=== PATIENT | male | born 1995 | race Caucasian/White ===

== ENCOUNTER 2020-06-09 05:34 | Inpatient (IN) ==
[2020-06-09 07:55] LABS: ABG Base Excess -4 mEq/L (-2 to 3); ABG HCO3 25 mEq/L (21-27); ABG Oxygen Saturation 84 % (95-98); ABG PCO2 63 mmHg (35-45); ABG PH 7.21 pH Units (7.32-7.45); ABG PO2 61 mmHg (85-104); ABG TCO2 27 mEq/L (20-26); Blood Gas VT 500 cc
[2020-06-09] MEDS ORDERED: Ondansetron 4 MG/2 ML VIAL IVP PRN (08:00)
[2020-06-09] MEDS ORDERED: Naloxone 0.4 MG/ML INJ IVP PRN ×2 (08:00→16:55)
[2020-06-09] MEDS ORDERED: Piperacillin/Tazobactam 3.375 GM in 0.9 % Sodium Chloride Mini Bag 100 ML IVPB SCH (09:00)
[2020-06-09] MEDS ORDERED: Artificial Tears SOLN 15 ML BOTTLE BOTH EYES PRN (09:13)
[2020-06-09] MEDS ORDERED: Isovue-370 500 ML BOTTLE IVP ONE (09:41)
[2020-06-09 09:51] LABS: Basophils % 0.2 %; Eosinophils % 0.1 %; Hematocrit 45.5 % (37.5-50.1); Hemoglobin 14.7 g/dL (12.9-16.9); Immature Granulocytes % 0.6 % (0-4); Lymphocytes # 2.5 K/mcL (0.6-4.6); Lymphocytes % 15.1 %; Mean Corpuscular HGB Conc 32.3 g/dL (31.6-35.5); Mean Corpuscular Hemoglobin 29.9 pg (28.0-33.3); Mean Corpuscular Volume 92.7 fL (83.0-100.0); Mean Platelet Volume 9.8 fL (9.4-12.4); Monocytes # 1.5 K/mcL (0.0-1.3); Neutrophils # 12.2 K/mcL (1.6-8.9); Platelet Count 243 K/mcL (140-400); Red Blood Count 4.91 M/mcL (4.19-5.50); Red Cell Distribution Width 12.4 % (11.5-14.5); White Blood Count 16.3 K/mcL (4.3-11.1)
[2020-06-09] MEDS: Pantoprazole 40 MG VIAL IVP SCH (10:01)
[2020-06-09 10:06] LABS: Alanine Aminotransferase 33 Units/L (7-52); Albumin 4.5 g/dL (3.5-5.7); Albumin/Globulin Ratio 1.6 (1.1-2.2); Alkaline Phosphatase 72 Units/L (34-104); Aspartate Amino Transferase 57 Units/L (13-39); BUN/Creatinine Ratio 10 (6-26); Bilirubin,Total 0.5 mg/dL (0.3-1.0); Blood Urea Nitrogen 15 mg/dL (6-20); Calcium 8.4 mg/dL (8.6-10.3); Carbon Dioxide 27 mEq/L (23-29); Chloride 107 mEq/L (98-107); Globulin 2.8 g/dL (2.4-3.5); Glucose 92 mg/dL (70-105); Magnesium 1.8 mg/dL (1.6-2.6); Osmolality,Calculated 284 (280-300); Phosphorous 4.5 mg/dL (2.7-4.5); Potassium 5.9 mEq/L (3.5-5.1); Sodium 137 mEq/L (136-145); Total Protein 7.3 g/dL (6.4-8.9); eGFR For African Americans > 60 (> 60); eGFR For Non-African Americans 55 (> 60)
[2020-06-09 10:29] LABS: Sodium, Urine 41.1 mEq/L
[2020-06-09 10:31] LABS: Creatine Kinase 1841 Units/L (30-223)
[2020-06-09] MEDS: Calcium Gluconate 1gm/50mL 1 GM/50 ML BAG IVPB SCH ×2 (11:00→12:21)
[2020-06-09] MEDS ORDERED: Ringers Solution, Lactated 1,000 ML ONE (11:11)
[2020-06-09] MEDS: Artificial Tears SOLN 15 ML BOTTLE BOTH EYES SCH ×4 (11:13→23:32)
[2020-06-09 11:25] LABS: ABG Base Excess -4 mEq/L (-2 to 3); ABG HCO3 24 mEq/L (21-27); ABG Oxygen Saturation 47 % (95-98); ABG PCO2 53 mmHg (35-45); ABG PH 7.27 pH Units (7.32-7.45); ABG PO2 29 mmHg (85-104); ABG TCO2 26 mEq/L (20-26); Blood Gas Modality ASSIST CONTROL; Blood Gas VT 500 cc
[2020-06-09 11:37] LABS: ABG Base Excess -3 mEq/L (-2 to 3); ABG HCO3 25 mEq/L (21-27); ABG Oxygen Saturation 30 % (95-98); ABG PCO2 55 mmHg (35-45); ABG PH 7.27 pH Units (7.32-7.45); ABG PO2 22 mmHg (85-104); ABG TCO2 27 mEq/L (20-26); Blood Gas Modality ASSIST CONTROL; Blood Gas VT 500 cc
[2020-06-09 12:03] LABS: ABG Base Excess -4 mEq/L (-2 to 3); ABG HCO3 23 mEq/L (21-27); ABG Oxygen Saturation 89 % (95-98); ABG PCO2 47 mmHg (35-45); ABG PH 7.29 pH Units (7.32-7.45); ABG PO2 63 mmHg (85-104); ABG TCO2 24 mEq/L (20-26); Blood Gas Modality ASSIST CONTROL; Blood Gas VT 500 cc
[2020-06-09] MEDS: Ringers Solution, Lactated 1,000 ML IVC SCH ×2 (13:56→21:28)
[2020-06-09] MEDS ORDERED: SODIUM CHLORIDE 0.9% IVC SCH ×2 (14:45→18:45)
[2020-06-09] MEDS ORDERED: NALOXONE IVC SCH ×2 (14:45→18:45)
[2020-06-09] MEDS ORDERED: Ipratropium/Albuterol Neb 3 ML IH PRN (15:45)
[2020-06-09] MEDS ORDERED: Ipratropium/Albuterol Neb 3 ML ONE (15:45)
[2020-06-09] MEDS ORDERED: Furosemide 40 MG/4 ML VIAL IVP ONE (15:45)
[2020-06-09] MEDS ORDERED: *HR* Labetalol 20 MG/4 ML SYRINGE IVP ONE (16:58)
[2020-06-09] MEDS: Piperacillin/Tazobactam 3.375 GM in 0.9 % Sodium Chloride Mini Bag 100 ML IVPB SCH (17:58)
[2020-06-09] MEDS ORDERED: Acetaminophen 325 MG TABLET PO PRN (18:56)
[2020-06-09] MEDS ORDERED: Chlorhexidine Rinse 15 ML MOUTHWASH MM SCH (21:00)
[2020-06-09] MEDS ORDERED: Naloxone 2 MG in 0.9 % Sodium Chloride 500 ML IVC SCH (23:00)
[2020-06-10] MEDS: Piperacillin/Tazobactam 3.375 GM in 0.9 % Sodium Chloride Mini Bag 100 ML IVPB SCH ×3 (01:29→17:52)
[2020-06-10 04:09] LABS: Basophils # 0.1 K/mcL (0.0-0.2); Basophils % 0.2 %; Hematocrit 42.9 % (37.5-50.1); Hemoglobin 14.6 g/dL (12.9-16.9); Immature Granulocytes % 0.8 % (0-4); Lymphocytes # 1.3 K/mcL (0.6-4.6); Lymphocytes % 6.4 %; Mean Corpuscular Hemoglobin 30.2 pg (28.0-33.3); Mean Corpuscular Volume 88.8 fL (83.0-100.0); Mean Platelet Volume 9.8 fL (9.4-12.4); Monocytes # 0.9 K/mcL (0.0-1.3); Monocytes % 4.4 %; Platelet Count 186 K/mcL (140-400); Red Blood Count 4.83 M/mcL (4.19-5.50); Red Cell Distribution Width 12.2 % (11.5-14.5); Segmented Neutrophils % 88.2 %; White Blood Count 20.4 K/mcL (4.3-11.1)
[2020-06-10 04:10] LABS: VBG Ionized Calcium 1.11 mmol/L (1.15-1.35)
[2020-06-10] MEDS: Artificial Tears SOLN 15 ML BOTTLE BOTH EYES SCH ×3 (04:30→11:59)
[2020-06-10 04:56] LABS: Alanine Aminotransferase 59 Units/L (7-52); Albumin 4.2 g/dL (3.5-5.7); Albumin/Globulin Ratio 1.4 (1.1-2.2); Alkaline Phosphatase 57 Units/L (34-104); Aspartate Amino Transferase 156 Units/L (13-39); BUN/Creatinine Ratio 16 (6-26); Blood Urea Nitrogen 17 mg/dL (6-20); Calcium 8.8 mg/dL (8.6-10.3); Carbon Dioxide 25 mEq/L (23-29); Chloride 105 mEq/L (98-107); Creatine Kinase 4985 Units/L (30-223); Glucose 134 mg/dL (70-105); Magnesium 1.4 mg/dL (1.6-2.6); Osmolality,Calculated 290 (280-300); Phosphorous 3.8 mg/dL (2.7-4.5); Potassium 4.1 mEq/L (3.5-5.1); Sodium 138 mEq/L (136-145); Total Protein 7.2 g/dL (6.4-8.9); eGFR For African Americans > 60 (> 60); eGFR For Non-African Americans > 60 (> 60)
[2020-06-10] MEDS: Ringers Solution, Lactated 1,000 ML IVC SCH (05:40)
[2020-06-10] MEDS ORDERED: Ringers Solution, Lactated 1,000 ML IVC SCH (05:45)
[2020-06-10] MEDS ORDERED: 0.9 % Sodium Chloride 1,000 ML IVC SCH (06:15)
[2020-06-10 07:25] LABS: Troponin I 0.14 ng/mL (< 0.04)
[2020-06-10] MEDS: Pantoprazole 40 MG VIAL IVP SCH (07:26)
[2020-06-10] MEDS ORDERED: Sodium Bicarbonate 150 MEQ in D5% in Water 1,000 ML IVC SCH (08:00)
[2020-06-10] MEDS ORDERED: Famotidine 20 MG TABLET PO SCH ×2 (09:15→21:00)
[2020-06-10 09:16] LABS: Appearance of Body Fluid Cloudy (Clear); Volume of Body Fluid 24 mL
[2020-06-10] MEDS ORDERED: Acetaminophen 325 MG TABLET PO PRN (12:58)
[2020-06-10] MEDS ORDERED: Artificial Tears SOLN 15 ML BOTTLE BOTH EYES PRN (12:58)
[2020-06-10] MEDS ORDERED: Ipratropium/Albuterol Neb 3 ML IH PRN (12:58)
[2020-06-10] MEDS ORDERED: Ondansetron 4 MG/2 ML VIAL IVP PRN (12:58)
[2020-06-10] MEDS ORDERED: Naloxone 0.4 MG/ML INJ IVP PRN (12:58)
[2020-06-10 14:59] LABS: INR 1.4
[2020-06-10 15:23] LABS: Albumin 3.9 g/dL (3.5-5.7); Albumin/Globulin Ratio 1.4 (1.1-2.2); Bilirubin,Direct 0.2 mg/dL (0.0-0.2); Bilirubin,Indirect 0.7 mg/dL (0.0-1.0); Bilirubin,Total 0.9 mg/dL (0.3-1.0); Globulin 2.7 g/dL (2.4-3.5); Total Protein 6.6 g/dL (6.4-8.9)
[2020-06-10] MEDS ORDERED: Artificial Tears SOLN 15 ML BOTTLE BOTH EYES SCH (16:00)
[2020-06-10] MEDS: Sodium Bicarbonate 150 MEQ in D5% in Water 1,000 ML IVC SCH ×2 (21:12→21:15)
[2020-06-11] MEDS: Piperacillin/Tazobactam 3.375 GM in 0.9 % Sodium Chloride Mini Bag 100 ML IVPB SCH ×2 (01:25→08:53)
[2020-06-11 02:56] LABS: Barbiturates NEGATIVE ng/mL (Cutoff 50); Buprenorphine NEGATIVE ng/mL (Cutoff 1); Cocaine NEGATIVE ng/mL (Cutoff 20); Methadone NEGATIVE ng/mL (Cutoff 25); Opiates NEGATIVE ng/mL (Cutoff 20); Phencyclidine NEGATIVE ng/mL (Cutoff 10)
[2020-06-11 03:47] LABS: BUN/Creatinine Ratio 14 (6-26); Blood Urea Nitrogen 12 mg/dL (6-20); Calcium 8.9 mg/dL (8.6-10.3); Carbon Dioxide 31 mEq/L (23-29); Chloride 100 mEq/L (98-107); Creatine Kinase 3510 Units/L (30-223); Glucose 114 mg/dL (70-105); Osmolality,Calculated 281 (280-300); Potassium 3.4 mEq/L (3.5-5.1); Sodium 135 mEq/L (136-145); eGFR For African Americans > 60 (> 60); eGFR For Non-African Americans > 60 (> 60)
[2020-06-11 06:55] VITALS: BP 138/85
[2020-06-11] MEDS ORDERED: Ringers Solution, Lactated 1,000 ML IVC SCH (08:30)
[2020-06-11 09:25] LABS: Amphetamines POSITIVE ng/mL (Cutoff 20); Benzodiazepines POSITIVE ng/mL (Cutoff 50); Methamphetamines POSITIVE ng/mL (Cutoff 20)
== END 2020-06-11 14:24 | disposition home or self-care (01) | DRG 871 ==
LOC: SUATTDRO 07:15 → ICNU 07:15 → 3BNU 06-10 17:13
PROVIDERS: ADMIT Internal Medicine; ATTEND Internal Medicine